=== PATIENT | female | born 1955 | race Two or more races ===

== ENCOUNTER → 2019-05-18 | Emergency (ER) | payer OTHER ==
[~2019-05-18] VITALS: Ht 157.5 cm; Wt 83.9 kg
[~2019-05-18] MED LIST: CIPRO500 MG PO; IBUPROFEN800 MG PO; NORVASC5 MG PO; ORPH100T PO; PYRIDIUM DS200 MG PO; ZIAC 10/6.25 MG1 TAB PO
== END | disposition home or self-care (01) ==
LOC: ER 09:58
DX: S52.121A Displaced fracture of head of right radius, initial encounter for closed fracture (principal); S00.83XA Contusion of other part of head, initial encounter; W18.39XA Other fall on same level, initial encounter; Y93.89 Activity, other specified; Y92.89 Other specified places as the place of occurrence of the external cause; Y99.8 Other external cause status

== ENCOUNTER 2019-05-26 08:14 | Outpatient (CLI) | payer OTHER | END 2019-05-26 13:25 | disposition home or self-care (01) | LOC: RAD 08:14 | DX: S52.124A Nondisplaced fracture of head of right radius, initial encounter for closed fracture (principal) ==

== ENCOUNTER 2019-10-13 06:00 | Emergency (ER) | payer OTHER ==
[~2019-10-13] VITALS: Ht 152.4 cm; Wt 87.1 kg
[2019-10-13] MEDS ORDERED: VISTARIL25 MG PO (09:09)
[2019-10-13] MEDS ORDERED: NORVASC5 MG PO (09:09)
[2019-10-13] MEDS ORDERED: ZIAC 10/6.25 MG1 TAB PO (09:10)
== END 2019-10-13 09:15 | disposition home or self-care (01) ==
LOC: ER 06:00
DX: I16.1 Hypertensive emergency (principal); I10 Essential (primary) hypertension; R51 Headache